=== PATIENT | male | born 1980 | race Caucasian/White ===

== ENCOUNTER 2018-10-10 14:44 | Inpatient (IN) | payer BC ==
[~2018-10-10] VITALS: Ht 170.2 cm; Wt 67.1 kg
--- NOTE | ~2018-10-10 | PLAN ---
[facility] [place] [address] REHAB UNIT PLAN OF CARE Name: BLANQUITA WOLF Room #: 513-P ADM IN M.R.#: [id number] Admission: 10/10/18 Attend Phys: Thomas Griffin MD Discharge: Date of : 82 Report #: [id number] THIS REPORT FOR: //name// CC: Thomas Griffin [facility] unknown DATE OF SERVICE: 10/12/2018 PROGRESS NOTE/OVERALL PLAN OF CARE SUBJECTIVE: The patient was seen on 10/12/2018. No new problems were noted. Temperature was 98.4, pulse 82, respirations 20, blood pressure 104/68. The patient has been involved in therapies with sit to stand transfers, modified independent. He is ambulating 500 feet, supervision. Upper body dressing has been supervision with lower body dressing, contact guard. In speech therapy, he was noted to have mild expressive deficits with vxuh-nj-coaxzmzj cognitive deficits, simz-mv-jkzbxnlv memory deficits. ASSESSMENT: 1. Wernicke-Korsakoff encephalopathy. 2. Critical illness myopathy. 3. Chronic alcoholism with recent severe withdrawal. 4. Transaminitis. 5. Acute respiratory failure with sepsis, pneumonia and prolonged ventilation. PLAN: The overall plan of care is based on the preadmission screen, post-admission physician evaluation and information garnered from therapy assessments. 1. Estimated length of stay should be fairly short as he is at a higher level. Would anticipate 7-10 days. 2. Medical prognosis is reasonably good. 3. Anticipated interventions include the interdisciplinary acute inpatient rehabilitation program. 4. Anticipated functional outcomes would be for the patient to become modified independent with transfers, mobility, ADLs and cognition, so he can return back to the home setting. 5. Discharge destination would be back to the home setting where the plan is for him to go live with his parents. 6. Expected therapy by discipline includes PT, OT and speech 1 hour per day each five days a week throughout the duration of the acute inpatient rehabilitation stay. He has neuropsychology involved as well. By: [id number] Thomas Griffin MD /nt
--- NOTE | ~2018-10-10 | HC ---
[facility] [place] [address] CONSULTATION Name: BLANQUITA WOLF Room #: 513-P [facility] IN M.R.#: [id number] Admission: 10/10/18 Attend Phys: Thomas Griffin MD Discharge: Date of : 81 Report #: [id number] THIS REPORT FOR: //name// CC: Thomas Griffin [facility] unknown DATE OF SERVICE: 10/12/2018 NEUROBEHAVIORAL STATUS EXAMINATION ATTENDING PHYSICIAN: Thomas Griffin MD MOTEL MANAGER: Adair Hodge, PhD CLINICAL PRESENTATION: The patient is a 38-year-old male admitted to the [facility] Rehabilitation Unit for comprehensive inpatient rehabilitation program to improve activities of daily living and self-care and mental status secondary to deficits from encephalopathy. He carries a diagnosis of Wernicke-Korsakoff encephalopathy, critical illness myopathy, chronic alcoholism with severe withdrawal, transaminitis, elevated lipase, respiratory failure with prolonged mechanical ventilation and ARDS. The patient was admitted initially at the [facility] for treatment of alcohol-related conditions. He had development of hallucination and tremors during his admission when he went into an alcohol withdrawal and was intubated. He developed septic shock and had severe aspiration pneumonia. The patient reports a memory of going to the ER initially for problems with his foot and toe. He does not report a history of depression or anxiety. He does acknowledge a severe degree of alcohol abuse. He has been living with his parents and has 3 sisters. He is a single male with 1 child. He does not report a history of treatment for ADHD or learning disability. He does not report auditory or visual hallucinations. 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 He is a high school graduate with 1 year of college. TECHNIQUES UTILIZED: Clinical interview, review of medical records, staff consultation and behavioral observation, mini mental status exam 2 standard version and verbal fluency assessment (letter and category and clock drawing). EXAMINATION FINDINGS: The patient was alert and cooperative with the assessment. There is no evidence of aphasia. His thoughts are logical and goal oriented. There is no evidence of thought disorder. He does not report anxiety or depression. He feels like memory returned to within normal limits. [address] [address] CONSULTATION Name: BLANQUITA WOLF Room #: 513-P [facility] IN M.R.#: [id number] Admission: 10/10/18 Attend Phys: Thomas Griffin MD Discharge: Date of : 81 Report #: [id number] and sleep are within normal limits. He does indicate a mild degree of word finding deficits. His performance on the MMSE 2 brief version was within normal limits with a raw score of 14-16. He was 3/3 for initial registration, 5/5 for orientation to time and place and 1/3 for immediate recall of 3 items after a brief time delay and distraction. His performance on the MMSE 2 standard version was within normal limits with a raw score of 27/30. He was 4/5 for serial sevens, 2/2 for naming, 1/1 for repetition, 3/3 for auditory comprehension. He could read and follow a single command, write a sentence and copy a simple geometric design. Clock drawing was within normal limits. Letter fluency was in the average range with a raw score 29 and a T score of 52. Category fluency was raw score of 14, which is a T score of 37 in the low average range at the 10th percentile. The patient is alert and oriented, presenting with some mild neurocognitive deficits. He most likely had a delirium during his initial hospitalization, which has now been adequately treated and resolved. DIAGNOSTIC IMPRESSION: 1. Mild neurocognitive disorder, unspecified, without behavior disorder. 2. Alcohol use disorder -- persistent. RECOMMENDATIONS: As indicated, the patient likely had a delirium during his initial treatment, which has resolved. Rather than a Wernicke-Korsakoff syndrome, likely has a mild neurocognitive disorder as he continues to recover. The patient will require an alcohol treatment program upon discharge. A more thorough neuropsych assessment can clarify longer lasting and lingering neurocognitive deficits. Assistance in the management of medications would be of benefit. The use of compensatory strategies for memory, attention/concentration and thought organization will be helpful. Thank you very much for allowing me to provide the consultation on this patient. By: [id number] Adair Hodge, PhD /nt
--- NOTE | ~2018-10-10 | H ---
[facility] [place] [address] HISTORY AND PHYSICAL Name: BLANQUITA WOLF Room #: 513-P ADM IN M.R.#: [id number] Admission: 10/10/18 Attend Phys: Thomas Griffin MD Discharge: Date of : 81 Report #: [id number] THIS REPORT FOR: //name// CC: Thomas Griffin [facility] unknown DATE OF SERVICE: 10/11/2018 HISTORY AND PHYSICAL/POSTADMISSION PHYSICIAN EVALUATION HISTORY OF PRESENT ILLNESS: The patient is a 38-year-old white male transferred from [facility] after a prolonged hospitalization for alcohol-related issues. He was initially having hallucination and tremors when he was admitted to [facility] went into alcohol withdrawal, was intubated and was actually mechanically ventilated for 12 days. He was noted to develop septic shock requiring Levophed and also had severe aspiration pneumonia growing out MSSA. He had persistent leukocytosis, was warranting continued IV antibiotics. He was noted to have active hallucinations. Neurology was consulted and they actually diagnosed Wernicke-Korsakoff encephalopathy. He was followed regarding elevated liver enzymes with alcoholic hepatitis. He also had a non-ST elevation myocardial infarction which was thought to be due to sepsis and not to a cardiac event. He developed ARDS from the pneumonia. Psychiatry followup was recommended to prevent recurrence of alcohol usage. He was noted to be significantly weak and debilitated, was diagnosed with critical illness myopathy. He has been admitted now for acute in-hospital inpatient rehabilitation. ADMISSION DIAGNOSES: Include acute encephalopathy as well as critical illness myopathy. PAST MEDICAL HISTORY: Essentially benign. PAST SURGICAL HISTORY: None. HABITS: No history of tobacco abuse. There is a history of heavy alcohol usage. SOCIAL HISTORY: He has been living alone, but the plan is to go live with his parents. He works in [employer]. Apparently, he has an 11-year-old daughter living with her mother. REVIEW OF SYSTEMS: Did not offer any current complaints of chest pain, shortness of breath, abdominal discomfort. No focal extremity pain complaints. No symptoms regarding scan. He does have some diffuse weakness with a critical illness myopathy. No symptoms reported. [facility] [address] [address] HISTORY AND PHYSICAL Name: BLANQUITA WOLF Room #: 513-P [facility] IN M.R.#: [id number] Admission: 10/10/18 Attend Phys: Thomas Griffin MD Discharge: Date of : 81 Report #: [id number] PHYSICAL EXAMINATION: GENERAL: He is a pleasant, small statured 38-year-old white male in no obvious distress. VITAL SIGNS: Height 5 feet 7 inches, weight 148 pounds. HEENT: Appeared to be benign. NEUROLOGIC: Cranial nerves are grossly intact. He is able to follow basic 1 step commands without difficulty, was conversant, in no obvious problem solving difficulties. He may have some latency to his responses. He was pleasant. CHEST: Sounded clear to auscultation. CARDIOVASCULAR: Regular rate and rhythm. ABDOMEN: Bowel sounds positive, nontender. GENITOURINARY AND RECTAL: Deferred. EXTREMITIES: He has functional range of motion of both upper extremities without obvious focal weakness. DTRs are trace to 1. Lower extremities, no focal calf swelling, functional range of motion ____. DTRs are 1-2. There is no distal lower extremity edema. Strength is probably a grade 4-/5. ASSESSMENT: A 38-year-old white male with the following problem list: 1. Wernicke-Korsakoff encephalopathy. 2. Critical illness myopathy. 3. Chronic alcoholism with severe withdrawals. 4. Transaminitis. 5. Elevated lipase. 6. Respiratory failure with prolonged mechanical ventilation and ARDS. PLAN: continuing to monitor regarding the Wernicke-Korsakoff encephalopathy. Visual hallucinations appear to be improving. RECOMMENDATIONS: Are that he have alcohol involvement with psych to be consulted in followup to help prevent recurrence. From a postadmission physician evaluation perspective, there are no relevant changes since the preadmission screening. Please see the above review of prior and current medical and functional conditions and comorbidities. Please see the patient's previous and current functional status. He was fully independent, ambulatory without gait aids premorbidly. He has been needing assist with short distance ambulation prior to transfer. As far as risk of complications, he has the multiple medical comorbidities as noted above. Initial plan of care involves the interdisciplinary acute inpatient rehabilitation program with goal maximizing his functional independence so that he can hopefully return back to his prior living situation. Prognosis is reasonably good with estimated length of stay probably fairly short in the 7-10 day range pending how he does. Potential barriers would include his multiple medical comorbidities and decreased functional status. The patient meets diagnostic criteria for an acute in-hospital inpatient rehabilitation stay. He meets the medical necessity criteria and we will have [address] [address] HISTORY AND PHYSICAL Name: BLANQUITA WOLF Room #: 513-P [facility] IN M.R.#: [id number] Admission: 10/10/18 Attend Phys: Thomas Griffin MD Discharge: Date of : 82 Report #: [id number] the coding consultant physicians involved. He does have the tolerance for therapies and has appropriate discharge goals back to the home setting. By: [id number] Thomas Griffin MD /nt
--- NOTE | 2018-10-10 18:35 | NUR ---
PT ARRIVED AT 1720 FROM [facility]. AMBULATED FROM MAIN ENTERANCE TO HIS ROOM. PT IS ALERT AND ORIENTED *4. VITALS STABLE. DENIES PAIN. HAS A CUT ON LEFT HAND 4TH AND 5TH DIGITS, 5TH DIGIT DRESSING ON. HAS REDNESS AROUND THE RIGHT WRIST CAUSED BY WRIST BAND TOO TIGHT. PT UP WITH SBA ASSIST, STEADY GAIT. ATE 100% OF HIS DINNER. PARENTS AT THE BEDSIDE. Q1H VISUAL CHECKS. CALL LIGHT WITHIN REACH. FALL PRECAUTIONS IN PLACE
[2018-10-10 19:32] VITALS: BP 102/64
--- NOTE | 2018-10-11 02:11 | NUR ---
PT ALERT AND ORIENTED X 4. UP IN RECLINER ALL EVENING. TRANSFERRED TO BED AT WITH ASSIST X 1. DRESSING TO LEFT 5TH FINGER C/D/I. PT DENIES PAIN OR DISCOMFORT. BED ALARM ON FOR SAFETY. PT APPEARS TO BE SLEEPING ON HOURLY ROUNDS.
[2018-10-11 06:30] LABS: ABSOLUTE NEUTROPHILS 3.8 thou/uL (1.4-8.2); BASOPHILS 1.2 % (0.0-2.0); EOSINOPHILS 4.6 % (0.0-3.0); HEMATOCRIT 35.1 % (42.0-52.0); HEMOGLOBIN 12.1 gm/dL (14.0-18.0); LYMPHOCYTES 25.6 % (24.0-44.0); MCH 33.8 pg (26.0-34.0); MCHC 34.5 g/dL (28.0-37.0); MONOCYTES 10.2 % (1.0-8.0); PLATELET COUNT 275 thou/uL (150-400); POLYS 58.4 % (36.0-66.0); RBC 3.59 mil/uL (4.50-6.00); RDW 12.9 % (10.5-14.5); WBC 6.4 thou/uL (4.0-11.0)
[2018-10-11 06:42] LABS: CALCIUM 7.4 mg/dL (8.5-10.1); POTASSIUM 3.8 mmol/L (3.5-5.1); TOTAL BILIRUBIN 1.2 mg/dL (<0.1-1.0)
[2018-10-11 08:00] VITALS: BP 108/69
--- NOTE | 2018-10-11 09:47 | NUR ---
ASSUME PT CARE AT 0700. PT ALERT AND ORIENTED X 4. REPORTS SLEPT GOOD AFTER TOOK SEROQUEL. UP IN RECLINER AT THIS MOMENT. OT HELPED WITH SETTING UP FOR SHOWER. PT TOOK SHOWER INDEPENDENTLY THIS AM. TRANSFERRED WITH SBA WITH GB. HAS STEADY GAIT. ADMISSION PICTURE ON LEFT 5TH FINGER TAKEN, DRESSING CHANGED. PT DENIES PAIN OR DISCOMFORT. REASSESSMENT PER CHART. LAST BM WAS 2 DAYS AGO. OFFERED PRN LAXATIVE. TOOK SCHEDULE MEDS AND PRN COLACE AND SENNOKOT. OFFERED SUPPORT CARE, ENCOURAGED PT TO VOICE HIS NEEDS. DISCUSSED WITH PT ABOUT CARE PLANS. DISCUSSED WITH PHYSICAL THERAPIST TO SEE IF PT IS APPROPRIATE FOR M.I IN ROOM WITHOUT A DEVICE. PT'S GOALS ARE CONTINUE TO WORK ON HIS COGNITIVE. BED ALARM ON FOR SAFETY. CALL LIGHT WITHIN REACH. WILL CONTINUE TO MONITOR.
[2018-10-11 20:06] VITALS: BP 104/68
--- NOTE | 2018-10-12 01:19 | NUR ---
assumed care at approx 1900 evening 10/11. pt sitting up in recliner at change of shift resting and visiting with family at bedside. pt alert and oriented x4, appropriate and cooperative. pt had bm before falling asleep. pt appears to be sleeping soundly wth hourly rounding checks. bed alarm on and call light in reach. will continue to monitor.
[2018-10-12 07:55] VITALS: BP 110/74
--- NOTE | 2018-10-12 14:38 | NUR ---
ASSUMED CARE AT 0715 TODAY. HE HAS BEEN PLEASANT AND COOPERATIVE WITH STAFF. HE SAT UP IN BED THIS MORNING, BUT AFTER HIS SHOWER HE HAS BEEN IN HIS BEDSIDE CHAIR WATCHING TELEVISION. HE REMAINS ON RA. NO IV'S. HAD HEARD HE WANTED A PASS TODAY, BUT NO ONE HAS ARRIVED UP TO THIS TIME TO ASK FOR IT. B/P WAS 110/68 TODAY. HE HAS A SORE ON HIS L LITTLE FINGER THAT IS WRAPPED UP. NO NEW PROBLEMS NOTED OR VOICED. HE REMAINS A & O X 4.
[2018-10-12 22:49] VITALS: BP 106/68
--- NOTE | 2018-10-13 02:10 | NUR ---
PT ALERT AND ORIENTED X 4. AMB TO BR WITH GAIT BELT AND ASSIST X 1 WITHOUT DIFFICULTY. DRESSING TO LEFT FINGER C/D/I. PT DENIES PAIN OR DISCOMFORT. BED ALARM ON FOR SAFETY. PT APPEARS TO BE SLEEPING ON HOURLY ROUNDS.
[2018-10-13 07:45] VITALS: BP 108/74
--- NOTE | 2018-10-13 10:44 | NUR ---
ASSUMED CARES AT 0700. PT ALERT AND ORIENTED*4. DENIES PAIN. VITALS STABLE. PT IS NOW MODIFIED INDEPENDENT IN ROOM AND AROUND THE UNIT. PT CONTINUES TO HAVE A WOUND IN HIS LEFT HAND 5TH FINGER, CLEANED AND DRESSING CHANGED, PHOTO TAKEN. Q1H VISUAL CHECKS. CALL LIGHT WITHIN REACH. FALL PRECAUTIONS IN PLACE
--- NOTE | 2018-10-13 12:32 | NUR ---
pt up in recliner chair. a & o x 3, pleasant and able to make his needs know. intro to cm, team meeting and out pt rehab. pt denies need for any resource for drugs or alcohol abuse. pt reported " live home with mom and dad, dads number on board and you can speak with him too [phone]. no medical equipment, independent prior to hospital. will see dr murphy at [facility] off [address] employed. 2 steps enter home and live in basement [address]."/chelo. will cont following as needed for dc needs.
[2018-10-13 19:42] VITALS: BP 101/69
--- NOTE | 2018-10-14 05:34 | NUR ---
Assumed pt care at 1900. Pt A&Ox3, able to make needs known, Pleasant and cooperative with nursing cares. Pt denied pain, SOA or difficulty breathing. Pt ambulates in room with steady gait. DRSG C/D/I to L 5th digit. Visitors in evening. Pt currently resting in bed, call light within reach, will continue to be monitored.
[2018-10-14 08:25] VITALS: BP 142/51
[2018-10-14 09:06] VITALS: BP 102/68
[2018-10-14] MEDS ORDERED: PRENATAL COMPL1 EACH PO (09:51)
[2018-10-14] MEDS ORDERED: VITAMIN B-1100 M2 PO (09:51)
[2018-10-14] MEDS ORDERED: PROTONIX40 M1 PO (09:51)
[2018-10-14] MEDS ORDERED: SEROQUEL 50 MG50 MG PO (09:51)
--- NOTE | 2018-10-14 09:53 | NUR ---
WOUND CONSULT: PT. WAS SEEN TODAY BY DR. HOLCOMB AND MYSELF. PT. HAS A TRAMATIC WOUND TO HIS LEFT 5TH FINGER. PT. REPORTS THAT THIS HAPPENED FROM A DRILL AT WORK PRIOR TO COMING TO THE HOSPITAL. THE WOUND IS STABLE WITH DRY ESCHAR AT THIS TIME. RECOMMENDATIONS: PAINT WITH BETADINE AND COVER WITH A BANDAID, COMPLETE CARES DAILY AND PRN. PT. AND STAFF NURSE WERE INSTRUCTED ON PLAN OF CARE.
--- NOTE | 2018-10-14 11:32 | HC ---
[facility] [place] [address] CONSULTATION Name: BLANQUITA WOLF Room #: 513-P [facility] IN M.R.#: [id number] Admission: 10/10/18 Attend Phys: Thomas Griffin MD Discharge: Date of : 82 Report #: [id number] THIS REPORT FOR: //name// CC: Thomas COELHO unknown DATE OF SERVICE: 10/14/2018 CHIEF COMPLAINT: Injury to left fifth finger. 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 He injured his left fifth finger with a drill. He was subsequently hospitalized at [facility] after prolonged hospitalization for alcohol-related issues and withdrawal. He denies significant pain in his hands, states he has full range of motion. PAST MEDICAL HISTORY: Positive for alcohol withdrawal, Wernicke-Korsakoff encephalopathy and recent respiratory failure requiring prolonged mechanical ventilation with ARDS. CURRENT MEDICATIONS: Include vitamins, thiamine, pantoprazole, quetiapine, famotidine, bisacodyl, docusate sodium, magnesium hydroxide and sennosides. ALLERGIES: None. SOCIAL HISTORY: Positive for heavy alcohol use. FAMILY HISTORY: Noncontributory. REVIEW OF SYSTEMS: CONSTITUTIONAL: The patient denies fever, chills, weight loss. NEUROLOGICAL: The patient denies focal weakness. ENT: The patient denies earache, nasal drainage or sore throat. CARDIOVASCULAR: The patient denies chest pain, palpitations, diaphoresis. PULMONARY: The patient denies cough or shortness of breath. GASTROINTESTINAL: The patient denies nausea, vomiting, diarrhea, abdominal pain. ORTHOPEDIC: The patient does complain of injury to his left fifth finger. Other systems in a 14-point review of systems are negative. PHYSICAL EXAMINATION: VITAL SIGNS: At this time include pulse 72, respiratory rate of 18, blood pressure 142/51, temperature 97.8. GENERAL: This is a chronically ill-appearing male patient who appears to be in no distress. [address] [address] CONSULTATION Name: BLANQUITA WOLF Room #: 513-P [facility] IN M.R.#: [id number] Admission: 10/10/18 Attend Phys: Thomas Griffin MD Discharge: Date of : 81 Report #: [id number] HEENT: Head normocephalic. Extraocular muscles intact. Nose and throat are clear. NECK: Supple. LUNGS: The patient is in no respiratory distress with symmetrical movement. HEART: Regular rhythm. ABDOMEN: Soft. NEUROLOGIC: The patient is alert, does move all 4 extremities spontaneously. EXTREMITIES: Demonstrate what appears to be a traumatic wound to the middle phalanx of the left fifth finger. It is covered with a thick almost yellow brown eschar. No evidence of infection or separation at this time. CLINICAL IMPRESSION: Traumatic injury to the left fifth finger. RECOMMENDATIONS: At this point in time, I think that simply painting with topical Betadine would be appropriate as this area will gradually contract and epithelialize. The patient is going to follow up, would recommend followup in an outpatient setting in the next 2 weeks. Resume activities as tolerated. <ELECTRONICALLY SIGNED> By: Mo Pradhan MD 10/14/18 [id number] Mo Pradhan MD /nt
--- NOTE | 2018-10-14 11:34 | NUR ---
ASSUMED CARES AT 0700. PT ALERT AND ORIENTEDX4. REPORTS SLEPT GOOD.DENIES PAIN. VITALS STABLE ON RA. PT MODIFIED INDEPENDENT IN ROOM AND AROUND THE UNIT. PT CONTINUES TO HAVE A WOUND-DRY ESCHARD IN HIS LEFT HAND 5TH FINGER LOOK BETTER. WOUND DOCTOR WAS HERE TO SEE PT. CLEANED AND DRESSING CHANGED, PHOTO TAKEN FOR DISCHARGE. H&P AND DISCHARGE SUMMARY PRINT OUT FOR PT TO GIVE TO HIS PCP BEFORE DISCHARGE. Q1H VISUAL CHECKS. CALL LIGHT WITHIN REACH. FALL PRECAUTIONS IN PLACE.
--- NOTE | 2018-10-14 11:45 | NUR ---
cm received voice message from bedside nurse that pt going to be dc home today and need outpt st set up. cm visited with pt that will start to set up at outpt [facility]. " that is fine my ride will be here at 1430"/chelo. readdressed ethol use, pt cont to deny need for outpt resource. rug layer notified that need rx for outpt speech. will cont following as needed for dc needs.
--- NOTE | 2018-10-14 13:25 | NUR ---
PT. DISCHARGING TODAY TO HOME WITH OUTPT SPEECH THERAPY. FAXED SPEECH EVALS TO [facility]. SPOKE WITH GEMA AND SHE RECEIVED REFERRAL. [place] [address]. PT. TO CALL OUTPT REHAB AT [phone] TO SET UP TIME OF VISITS.
== END 2018-10-14 14:57 | disposition home or self-care (01) | DRG 91 ==
LOC: ENTRNSPT 10-14 14:21 → EDTRNSPTSTS 10-14 14:23
PROVIDERS: Nurse Practitioner Family; ADMIT Physical Medicine & Rehabilitation
DX: G72.81 Critical illness myopathy (principal); A41.9 Sepsis, unspecified organism; J96.00 Acute respiratory failure, unspecified whether with hypoxia or hypercapnia; J69.0 Pneumonitis due to inhalation of food and vomit; E51.2 Wernicke's encephalopathy; F10.239 Alcohol dependence with withdrawal, unspecified; Y90.9 Presence of alcohol in blood, level not specified; R74.0 Nonspecific elevation of levels of transaminase and lactic acid dehydrogenase [LDH]; K70.10 Alcoholic hepatitis without ascites; Z60.2 Problems related to living alone; M10.9 Gout, unspecified; G47.00 Insomnia, unspecified; S60.949A Unspecified superficial injury of unspecified finger, initial encounter; X58.XXXA Exposure to other specified factors, initial encounter; Y93.89 Activity, other specified; Y92.89 Other specified places as the place of occurrence of the external cause; Y99.8 Other external cause status; Z71.41 Alcohol abuse counseling and surveillance of alcoholic
CPT/HCPCS: 10112